=== PATIENT | male | born 1955 | race Hispanic/Latino ===

== ENCOUNTER → 2019-02-12 | Outpatient (CLI) | payer OTHER | END | disposition home or self-care (01) | LOC: OIH 13:12 | PROVIDERS: ATTEND Internal Medicine Cardiovascular Disease | DX: Z13.6 Encounter for screening for cardiovascular disorders (principal) | CPT/HCPCS: 75571 ==

== ENCOUNTER → 2019-02-20 | Outpatient (CLI) | payer OTHER | END | disposition home or self-care (01) | LOC: SHCH 09:31 → EDUNIT# 10:00 | PROVIDERS: ATTEND Internal Medicine Cardiovascular Disease | DX: I73.9 Peripheral vascular disease, unspecified (principal) | CPT/HCPCS: 93925 ==

== ENCOUNTER 2023-06-27 08:37 | Inpatient (IN) | payer MEDICARE, OTHER ==
[~2023-06-27] VITALS: Ht 177.8 cm; Wt 94.8 kg
[2023-06-27 13:07] LABS: BASOPHILS # (AUTO) 0.03 K/uL (0.00-0.20); BASOPHILS % (AUTO) 0.5 % (0.0-5.0); EOSINOPHILS # (AUTO) 0.13 K/uL (0.00-0.70); EOSINOPHILS % (AUTO) 2.2 % (0.0-8.0); HEMATOCRIT 36.4 % (42-54); IMMATURE GRANULOCYTE ABSOLUTE 0.02 K/uL (0-1); LYMPHOCYTES # (AUTO) 1.1 K/uL (1.0-4.8); LYMPHOCYTES % (AUTO) 19.2 % (21.0-51.0); MEAN CORPUSCULAR HEMOGLOBIN 25.7 pg (27.0-33.0); MEAN CORPUSCULAR HGB CONC 31.6 g/dL (32.0-36.0); MEAN CORPUSCULAR VOLUME 81.4 fL (79-99); MONOCYTES # (AUTO) 0.6 K/uL (0.1-1.0); MONOCYTES % (AUTO) 10.4 % (3.0-13.0); NEUTROPHILS % (AUTO) 67.4 % (40.0-77.0); PLATELET COUNT (AUTO) 195 K/uL (130-400); RED BLOOD CELL COUNT(AUTO) 4.47 MIL/uL (4.50-6.20); RED CELL DISTRIBUTION WIDTH 19.9 % (11.0-15.5); WHITE BLOOD COUNT (AUTO) 5.9 K/uL (4.8-10.8)
[2023-06-27 13:27] LABS: CREATININE 0.9 mg/dL (0.5-1.3); POTASSIUM 4.3 mmol/L (3.5-5.1)
[2023-06-27 13:29] LABS: INR <= 0.93 (0.85-1.15)
[2023-06-27 13:30] LABS: PARTIAL THROMBOPLASTIN TIME 31.9 SEC (26.3-35.5)
[2023-06-27 14:25] VITALS: BP 131/80; PULSE 63; RESP 18
[2023-06-27] MEDS ORDERED: IRON PO (15:48)
[2023-06-27] MEDS ORDERED: AMOX1TAB16 PO (15:48)
[2023-06-27] MEDS ORDERED: OMEP20CA12 PO (15:48)
[2023-06-27] MEDS ORDERED: TAMS-1 PO (15:48)
[2023-06-27] MEDS ORDERED: FINA5TAB41 PO (15:48)
[2023-07-03] VITALS (35 sets, daily range): BP systolic 120–156; BP diastolic 63–89; PULSE 39–83; RESP 10–19; O2SAT 100
[2023-07-03] MEDS: LACTATED RINGERS 1000ML 1,000 ML IV ONE (07:00)
[2023-07-03] MEDS ORDERED: ONDANSETRON 4MG INJ ONE (07:27)
[2023-07-03] MEDS ORDERED: LIDOCAINE HCL MPF 1% 5ML VIAL ONE (07:27)
[2023-07-03] MEDS ORDERED: PROPOFOL 10 MG/ML 20ML VIAL IV ONE (07:27)
[2023-07-03] MEDS ORDERED: ROCURONIUM BROMIDE 10MG/1ML 5ML VL ONE ×2 (07:27→08:40)
[2023-07-03] MEDS ORDERED: FENTANYL CITRATE PF 50 MCG/1 ML 2ML VIAL ONE ×2 (07:27→08:40)
[2023-07-03] MEDS ORDERED: PHENYLEPHRINE HCL 10 MG/ML 1ML VIAL IV ONE (07:32)
[2023-07-03] MEDS ORDERED: EPHEDRINE SULFATE 50 MG/ML AMPULE ONE (07:57)
[2023-07-03] MEDS: INVANZ 1GM+NS 50ML IVPB 50 ML IV SCH (08:00)
[2023-07-03] MEDS ORDERED: NEOM500T PO (08:09)
[2023-07-03] MEDS ORDERED: ONDA8TAB12 PO (08:09)
[2023-07-03] MEDS ORDERED: METR-172 PO (08:09)
[2023-07-03] MEDS: LIDOCAINE 1%-EPI 1:100,000 20 ML VIAL ONE (08:34)
[2023-07-03] MEDS: BUPIVACAINE/PF 0.5% 30ML VIAL ONE (08:34)
[2023-07-03] MEDS: INDOCYANINE GREEN 25 MG VIAL IJ ONE (09:28)
[2023-07-03] MEDS ORDERED: NEOSTIGMINE METHYLSULFATE 1MG/ML IV ONE (12:03)
[2023-07-03] MEDS ORDERED: GLYCOPYRROLATE 0.2 MG/ML 5 ML VIAL ONE (12:03)
[2023-07-03] MEDS ORDERED: ACETAMINOPHEN 325 MG TAB PO PRN (12:30)
[2023-07-03] MEDS ORDERED: MORPHINE 4 MG SYG IV PRN (12:30)
[2023-07-03] MEDS ORDERED: ONDANSETRON 4MG INJ IVP PRN (12:30)
[2023-07-03] MEDS: FENTANYL CITRATE PF 50 MCG/1 ML 2ML VIAL ONE (13:20)
[2023-07-03] MEDS: MORPHINE 2 MG SYG ONE (13:58)
[2023-07-03] MEDS: MORPHINE 4 MG SYG ONE (16:25)
[2023-07-03 17:01] LABS: HEMATOCRIT 36.5 % (42-54); MEAN CORPUSCULAR HEMOGLOBIN 26.5 pg (27.0-33.0); MEAN CORPUSCULAR HGB CONC 32.3 g/dL (32.0-36.0); RED BLOOD CELL COUNT(AUTO) 4.45 MIL/uL (4.50-6.20); RED CELL DISTRIBUTION WIDTH 18.3 % (11.0-15.5)
[2023-07-03] MEDS: D5W-1/2 NS/20MEQ KCL 1,000 ML IV SCH (17:30)
[2023-07-03] MEDS: TAMSULOSIN HCL 0.4 MG CAP.ER.24H PO SCH (20:07)
[2023-07-03] MEDS: HYDROCODONE/ACETAMINOPHEN 5/325 MG TAB PO PRN (20:07)
[2023-07-03] MEDS: FINASTERIDE 5 MG TABLET PO SCH (20:07)
[2023-07-03] MEDS: GLYCOPYRROLATE 0.2 MG/ML 5 ML VIAL ONE (20:14)
[2023-07-04 04:00] VITALS: BP 141/80; PULSE 71; RESP 18
[2023-07-04 05:32] LABS: CREATININE 0.8 mg/dL (0.5-1.3); POTASSIUM 3.6 mmol/L (3.5-5.1)
[2023-07-04 08:00] VITALS: BP 96/61; PULSE 76; RESP 18; O2SAT 97
[2023-07-04] MEDS: PANTOPRAZOLE 40 MG TAB DR PO SCH (08:29)
[2023-07-04] MEDS: SIMETHICONE 80 MG TAB.CHEW PO SCH (10:21)
[2023-07-04 12:00] VITALS: BP 99/69; PULSE 76; RESP 20
[2023-07-04 16:00] VITALS: BP 120/68; PULSE 74; RESP 18
[2023-07-04 20:00] VITALS: BP 110/69; PULSE 78; RESP 18
[2023-07-05] VITALS: BP 101/58; PULSE 85; RESP 18
[2023-07-05 03:50] VITALS: BP 107/62; PULSE 80; RESP 18
[2023-07-05 04:56] LABS: CREATININE 0.8 mg/dL (0.5-1.3); POTASSIUM 3.2 mmol/L (3.5-5.1)
[2023-07-05 08:00] VITALS: BP 96/59; PULSE 80; RESP 18; O2SAT 99
[2023-07-05 11:44] VITALS: BP 96/60; PULSE 79; RESP 20
== END 2023-07-05 15:00 | disposition home or self-care (01) | DRG 332 ==
LOC: DAHIP 07-03 06:11 → 4AH 07-03 16:38
PROVIDERS: ADMIT Surgery; ATTEND Surgery
PROC: 0DUU47Z Supplement Omentum with Autologous Tissue Substitute, Percutaneous Endoscopic Approach (ICD-10-PCS; 2023-07-03)
PROC: 06LY4CC Occlusion of Hemorrhoidal Plexus with Extraluminal Device, Percutaneous Endoscopic Approach (ICD-10-PCS; 2023-07-03)
PROC: 8E0W4CZ Robotic Assisted Procedure of Trunk Region, Percutaneous Endoscopic Approach (ICD-10-PCS; 2023-07-03)
PROC: 0DBP4ZZ Excision of Rectum, Percutaneous Endoscopic Approach (ICD-10-PCS; principal; 2023-07-03 07:30)
DX: K57.32 Diverticulitis of large intestine without perforation or abscess without bleeding (principal); J96.01 Acute respiratory failure with hypoxia; N32.1 Vesicointestinal fistula; D50.9 Iron deficiency anemia, unspecified; E66.01 Morbid (severe) obesity due to excess calories; I10 Essential (primary) hypertension; K59.09 Other constipation; K64.9 Unspecified hemorrhoids; N40.0 Benign prostatic hyperplasia without lower urinary tract symptoms; Z68.30 Body mass index [BMI] 30.0-30.9, adult
CPT/HCPCS: 36415; 45330; 71045; 74430; 80048; 82948; 85025; 85027; 85610; 85730; 86850; 86900; 86901; 88307; 93005; A4344; G0378; J1335; J2270; J2371; J2405; J2704; J2710; J3010; J3480; J3490; J7030; J7120; A4215; A4221; A4222; A4223; A4600; A4649; A4663; A4930; A6260; C1769; G0168; J0665